=== PATIENT | female | born 1985 | race Caucasian/White ===

== ENCOUNTER 2023-07-20 21:24 | Emergency (ER) | payer MEDICAID, OTHER ==
[~2023-07-20] VITALS: Ht 162.6 cm; Wt 107.0 kg
[2023-07-20] MEDS ORDERED: NAPR-1334 PO (22:09)
[2023-07-20] MEDS ORDERED: CYCL-837 PO (22:09)
[2023-07-20 22:36] VITALS: BP 129/88; PULSE 77; RESP 16; TEMP 97.9; O2SAT 97
== END 2023-07-21 01:21 | disposition home or self-care (01) ==
LOC: ER 21:24
DX: S16.1XXA Strain of muscle, fascia and tendon at neck level, initial encounter (principal); J45.909 Unspecified asthma, uncomplicated; Z98.890 Other specified postprocedural states; V79.88XA Bus occupant (driver) (passenger) injured in other specified transport accidents, initial encounter; Y93.89 Activity, other specified; Y92.89 Other specified places as the place of occurrence of the external cause; Y99.8 Other external cause status
CPT/HCPCS: 72125; 72131; 72192; 76856; 81025